=== PATIENT | female | born 1950 | race Caucasian/White ===

== ENCOUNTER 2017-04-17 07:15 | Outpatient (CLI) | payer MEDICARE | END 2017-04-17 07:16 | disposition home or self-care (01) | LOC: BICMAMMO 07:15 | PROVIDERS: ATTEND Obstetrics & Gynecology | DX: Z12.31 Encounter for screening mammogram for malignant neoplasm of breast (principal) | CPT/HCPCS: 77063; G0202; 77067 ==

== ENCOUNTER 2018-04-26 14:13 | Outpatient (CLI) | payer MEDICARE ==
--- NOTE | 2018-04-26 16:27 | BD ---
Exam: DEXA Bone Density 04/26/18 HISTORY: 58-year-old female with history of osteopenia. Postmenopausal female screening. Lumbar Spine: BMD (g/cm2) L1 0.856 T-Score: -1.2 L2 0.954 T-Score: -0.7 L3 0.993 T-Score: -0.8 L4 1.028 T-Score: -0.3 L1-L4 0.963 T-Score: -0.8 Within normal limits with no increased risk for fracture. Left Femoral Neck: 0.757 T-Score: -0.8 Total Femur: 0.929 T-Score: -0.1 Within normal limits. No increased risk for fracture. FRAX score not reported because all T-Scores are at or below -1.0. POS: SANTO
== END 2018-04-26 14:14 | disposition home or self-care (01) ==
LOC: BICMAMMO 14:13
PROVIDERS: ATTEND Advanced Practice Midwife
DX: Z12.31 Encounter for screening mammogram for malignant neoplasm of breast (principal); Z13.820 Encounter for screening for osteoporosis; Z85.820 Personal history of malignant melanoma of skin
CPT/HCPCS: 77063; 77067; 77080

== ENCOUNTER 2019-01-16 09:50 | Outpatient (CLI) | payer MEDICARE ==
--- NOTE | 2019-01-16 11:11 | ULT ---
ULTRASOUND ABDOMEN: HISTORY: Left lower quadrant pain FINDINGS: The patient is postcholecystectomy. The common duct measures 6 cm in diameter. The liver, spleen, helms creas, kidneys and visualized portions of the aorta and IVC are unremarkable. No free fluid is seen. IMPRESSION: No significant abnormalities are seen.
== END 2019-01-16 09:51 | disposition home or self-care (01) ==
LOC: BICULT 09:50
PROVIDERS: ATTEND Internal Medicine Gastroenterology
DX: K52.9 Noninfective gastroenteritis and colitis, unspecified (principal); R10.32 Left lower quadrant pain; R14.0 Abdominal distension (gaseous)
CPT/HCPCS: 76700

== ENCOUNTER 2020-01-13 08:49 | Outpatient (CLI) | payer MEDICARE | END 2020-01-13 08:50 | disposition home or self-care (01) | LOC: CTENTCT 08:49 | PROVIDERS: ATTEND Specialist | DX: J34.89 Other specified disorders of nose and nasal sinuses (principal); R09.81 Nasal congestion | CPT/HCPCS: 70486 ==